=== PATIENT | male | born 1950 | race African-American/Black ===

== ENCOUNTER 2018-05-08 10:49 | Outpatient (CLI) | payer MEDICARE, BC ==
--- NOTE | 2018-05-08 14:00 | RAD ---
LUMBAR SPINE 2 VIEWS: INDICATION: Low back pain. COMPARISON: None. FINDINGS: There is levoscoliosis of the lumbar spine. There is multilevel spondylosis. No acute fracture or s ubluxation is evident. IMPRESSION: 1. Moderate degenerative disk disease and facet osteoarthritic change. 2. No acute osseous abnormality. POS: [facility]
== END 2018-05-08 10:50 | disposition home or self-care (01) ==
LOC: SCSRAD 10:49
PROVIDERS: ATTEND Family Medicine
DX: M54.5 Low back pain (principal); M51.36 Other intervertebral disc degeneration, lumbar region; M47.816 Spondylosis without myelopathy or radiculopathy, lumbar region
CPT/HCPCS: 72100

== ENCOUNTER 2018-05-18 20:30 | Outpatient (CLI) | payer MEDICARE, BC | END 2018-05-18 20:31 | disposition home or self-care (01) | LOC: SLEEPLAB 20:30 | PROVIDERS: ATTEND Nurse Practitioner Family | DX: G47.33 Obstructive sleep apnea (adult) (pediatric) (principal); F41.9 Anxiety disorder, unspecified; I10 Essential (primary) hypertension; E66.9 Obesity, unspecified; R06.83 Snoring; R40.0 Somnolence; R35.1 Nocturia; Z68.34 Body mass index [BMI] 34.0-34.9, adult | CPT/HCPCS: 95811 ==

== ENCOUNTER 2018-06-29 13:16 | Outpatient (CLI) | payer MEDICARE, BC ==
--- NOTE | 2018-06-29 15:39 | CT ---
CT OF LUMBAR SPINE WITHOUT CONTRAST: 06/29/18 INDICATION: Low back pain for many years. COMPARISON: Prior lumbar spine radiograph dated 05/08/18. FINDINGS: There are five lumbar type vertebra. There is levoscoliosis of the lumbar spine centered at L3-4. The re is vacuum disc phenomenon within the L4-5 level which can be indicative of underlying disc instabi lity. No acute fracture is evident. The visualized retroperitoneum and perivertebral soft tissues en ear within normal limits. There are scattered vascular calcification involving the abdominopelvic va sculature. There is mild degenerative change of both hips. At L5-S1, there is facet osteoarthrosis with mild broad based bulge with no definite appreciable cent ral canal or neural foraminal narrowing. At L4-5, there is a broad based bulge with facet hypertrophy likely inducing at least mild central ca nal narrowing and mild bilateral neural foraminal narrowing. At L3-4, there is a broad based bulge with facet hypertrophy likely inducing at least moderate left a nd mild right neural foraminal narrowing and mild central canal narrowing. At L2-3, there is no appreciable osseous central canal or neural foraminal narrowing. At the L1-2 level, there is no appreciable central canal or neural foraminal narrowing. IMPRESSION: Multilevel spondylosis of the lumbar spine most pronounced at L3-4 and L4-5. POS: [facility]
== END 2018-06-29 13:17 | disposition home or self-care (01) ==
LOC: TBSIIMAG 13:16
PROVIDERS: ATTEND Neurological Surgery
DX: M54.5 Low back pain (principal); M47.816 Spondylosis without myelopathy or radiculopathy, lumbar region
CPT/HCPCS: 72131

== ENCOUNTER 2021-09-18 07:58 | Emergency (ER) | payer OTHER, MEDICARE, BC ==
[2021-09-18] MEDS ORDERED: Ketorolac Tromethamine 30 MG/ML VIAL ONE (10:14)
== END 2021-09-18 10:55 | disposition home or self-care (01) ==
LOC: ERS 07:58
DX: S43.402A Unspecified sprain of left shoulder joint, initial encounter (principal); I10 Essential (primary) hypertension; M10.9 Gout, unspecified; W17.89XA Other fall from one level to another, initial encounter; Y93.A1 Activity, exercise machines primarily for cardiorespiratory conditioning; Y92.39 Other specified sports and athletic area as the place of occurrence of the external cause
CPT/HCPCS: 93005; 96372; J1885